=== PATIENT | female | born 1990 | race Two or more races ===

== ENCOUNTER 2018-01-12 17:30 | Emergency (ER) | payer OTHER ==
--- NOTE | 2018-01-12 18:16 | EDPHY ---
H & P Time Seen by Provider: 01/12/18 17:36 HPI/ROS: CHIEF COMPLAINT: Left ankle injury HISTORY OF PRESENT ILLNESS: 27-year-old female presents to the emergency department with injury to her left ankle. The patient was at work and a dog pulled her and she twisted her left ankle. The incident happened just prior to arrival. She is able to bear weight although this does cause pain. Denies any other trauma or injury. She did not fall or hit her head. She has had previous ankle sprains to the left ankle in the past. ROS: Denies pain in her left foot or left calf. Past Medical/Surgical History: Ankle sprains Social History: From [place], works at [employer] Smoking Status: Current some day smoker Physical Exam: On examination, there is some mild swelling noted to the lateral aspect of her left ankle overlying lateral malleolus. She has mild pain with palpation just distal to the lateral malleolus. Nontender to palpate over the medial malleolus. Nontender to palpate over the calf. Achilles tendon is intact. Left foot nontender. Normal sensation to light touch with normal 2 point discrimination. No obvious ligament instability. Constitutional: Initial Vital Signs Temperature (C) 37 C 01/12/18 17:44 Heart Rate 67 01/12/18 17:44 Respiratory Rate 16 01/12/18 17:44 Blood Pressure 128/73 H 01/12/18 17:44 O2 Sat (%) 99 01/12/18 17:44 O2 Delivery Mode Room Air Allergies/Adverse Reactions: diphenhydramine [From Benadryl] Allergy (Verified 01/12/18 17:44) Home Medications: Medication Instructions Recorded NK [No Known Home Meds] 01/12/18 MDM/Departure - MDM Imaging Results: Imaging Impressions Ankle X-Ray 01/12/18 17:48 Impression: Negative left ankle series. Imaging: I viewed and interpreted images myself Procedures: Patient was placed in Velcro ankle stirrup splint and examined post application in good placement with normal AUDIT INTERN. ED Course/Re-evaluation: 27-year-old female presents to the emergency department with left ankle injury. X-rays reveal no fractures. The patient was placed in Velcro ankle stirrup splint and was given orthopedic referral. She will bear weight as tolerated. - Depart Disposition: Home, Routine, Self-Care Clinical Impression: Left ankle sprain Qualifiers: Encounter type: initial encounter Involved ligament of ankle: unspecified ligament Qualified Code(s): S93.402A - Sprain of unspecified ligament of left ankle, initial encounter Condition: Good Instructions: Ankle Sprain (ED) Additional Instructions: Splint for comfort and support. Weightbear as tolerated or use crutches. Ibuprofen 600 mg every 8 hr as needed for pain. Ice and elevate to help relieve swelling. Return to the emergency department if you develop numbness or tingling in your toes, pain in your left calf, or if you feel worse in any way. Stand Alone Forms: Work Limited Duty Referrals: Ruiz Wilder MD [Medical Doctor] - 5-7 days, call for appt. (Orthopedic surgeon on-call)
[2018-01-12 18:38] VITALS: BP 114/85
== END 2018-01-12 18:43 | disposition home or self-care (01) ==
DX: S93.402A Sprain of unspecified ligament of left ankle, initial encounter (principal); F17.200 Nicotine dependence, unspecified, uncomplicated; X50.9XXA Other and unspecified overexertion or strenuous movements or postures, initial encounter; Y92.69 Other specified industrial and construction area as the place of occurrence of the external cause; Y99.0 Civilian activity done for income or pay; Y93.89 Activity, other specified
CPT/HCPCS: L4350

== ENCOUNTER 2018-06-05 09:27 | Emergency (ER) | payer OTHER ==
[2018-06-05] MEDS ORDERED: IPRATROPIUM/ALBUTEROL 3 ML DEYVIAL IH ONE (09:37)
[2018-06-05] MEDS ORDERED: NS 1,000 ML IV ONE (09:37)
[2018-06-05] MEDS ORDERED: DEXAMETHASONE 10 MG/ML VIAL IVP ONE (09:37)
--- NOTE | 2018-06-05 09:38 | EDPHY ---
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 She says, "I think I'm having an allergic reaction to a guinea pig." She's developed hives previously while in contact with guinea pigs, but has never had difficulty breathing. She complains of associated itching sensation along the lateral aspects of her neck and coughing as well. She denies other known allergens or medical history. REVIEW OF SYSTEMS: A comprehensive 10 system review of systems is otherwise negative aside from elements mentioned in the history of present illness. PMH: Hives when in contact with guinea pigs. SOCIAL HISTORY: Works at local [employer]. Friend at bedside. PHYSICAL EXAM: General:Patient is alert, in no acute distress. ENT:Eyes are normal to inspection. ENT inspection normal. No stridor. Neck: Erythema along lateral aspects of neck, otherwise normal inspection. Full range of motion. Respiratory:No respiratory distress. Breath sounds normal bilaterally. Cardiovascular: Regular rate and rhythm. Strong peripheral pulses. Normal cap refill. Abdomen:The abdomen is nontender to palpation. There are no peritoneal signs. Back: Normal to inspection. No tenderness to palpation. Skin: Normal color. No rash. Warm and dry. Extremities: Normal appearance. Full range of motion. Neuro: Oriented x3. Normal motor function. Normal sensory function. ED Course: This is a normally-healthy 27 y/o female who presents with difficulty breathing and neck itching after cleaning an animal cage at the local animal f[employer]. She believes her symptoms are an allergic reaction to a guinea pig as she has previously developed hives while in contact with them. On exam, she has normal lung sounds and mild erythema along the lateral aspects of her neck. Plan for symptomatic treatment with IV, 10mg IV Decadron, and duo neb. She declines Benadryl due to prior reactions where she gets shaky. 1115: Patient feels much better and would like to go home. It is unclear whether this represents a true allergic reaction versus a possible local airway irritant exposure. She did not receive epi. Her exam is now normal and I think she is safe to go home. - Data Points Medications Given: Discontinued Medications Albuterol/Ipratropium (Duoneb) 3 ml IH EDNOW ONE Stop: 06/05/18 09:38 Last Admin: 06/05/18 09:44 Dose: 3 ml Dexamethasone (Decadron Injection) 10 mg IVP EDNOW ONE Stop: 06/05/18 09:38 Last Admin: 06/05/18 09:44 Dose: 10 mg Sodium Chloride (Ns) 1,000 mls @ 0 mls/hr IV ONCE ONE; Wide Open PRN Reason: Protocol Stop: 06/05/18 09:38 Last Admin: 06/05/18 09:43 Dose: 1,000 mls General Time Seen by Provider: 06/05/18 09:33 Initial Vital Signs: Initial Vital Signs Temperature (C) 36.5 C 06/05/18 09:29 Heart Rate 100 06/05/18 09:29 Respiratory Rate 24 H 06/05/18 09:29 Blood Pressure 188/100 H 06/05/18 09:29 O2 Sat (%) 99 06/05/18 09:29 O2 Delivery Mode Room Air Allergies/Adverse Reactions: diphenhydramine [From Benadryl] Allergy (Verified 01/12/18 17:44) Home Medications: Medication Instructions Recorded NK [No Known Home Meds] 01/12/18 Departure - Departure Disposition: Home, Routine, Self-Care Clinical Impression: Allergic reaction Condition: Good Instructions: Urticaria (ED) Additional Instructions: Follow-up with your primary doctor within 72 hours. Use [id number] Benadryl as directed for itching. Return to the Emergency Department for shortness of breath, difficulty swallowing, difficulty breathing, worsening of rash, fever or other worsening of condition. Report Scribed for: Enmanuel Brewster Report Scribed by: Samanta Meyer Date of Report: 06/05/18 Time of Report: 09:38 Physician Review and Approval Statement: Portions of this note were transcribed by an ED scribe. I personally performed the history, physical exam, and medical decision making; and confirm the accuracy of the information in the transcribed note.
[2018-06-05] MEDS ORDERED: DEXAMETHASONE 4 MG/ML VIAL ONE (09:42)
[2018-06-05 10:33] VITALS: BP 105/87
== END 2018-06-05 11:23 | disposition home or self-care (01) ==
DX: T78.40XA Allergy, unspecified, initial encounter (principal); E86.9 Volume depletion, unspecified; Y93.K9 Activity, other involving animal care; Y99.0 Civilian activity done for income or pay
CPT/HCPCS: 96374; J1100